=== PATIENT | female | born 1950 | race Asian ===

== ENCOUNTER 2016-06-18 05:46 | Day surgery (SDC) | payer OTHER ==
[~2016-06-18] VITALS: Ht 149.9 cm; Wt 44.1 kg
[~2016-06-18 05:46] MED LIST: ACETAMINOPHEN 325 MG TABLET PO PRN; AMLO-511 PO; ASPI81 PO; FentaNYL CITRATE-PF 100 MCG/2 ML VIAL IVP ONE; LISI-661 PO; METF500T4 PO; MIDAZOLAM HCL 2 MG/2 ML VIAL IVP ONE; SIMV-259 PO; TETRACAINE HCL 0.5% 2 ML OPHTHALMIC SOLUTION OS ONE
[2016-06-18] MEDS ORDERED: RINGERS SOLUTION,LACTATED 500 ML IV ONE ×2 (06:01→06:30)
[2016-06-18] MEDS ORDERED: DICLOFENAC SODIUM 0.1% 2.5 ML OPHTHALMIC SOLUTION ONE (06:02)
[2016-06-18] MEDS ORDERED: PHENYLEPHRINE HCL 2.5% 2 ML OPHTHALMIC SOLUTION ONE (06:02)
[2016-06-18] MEDS ORDERED: TETRACAINE HCL 0.5% 2 ML OPHTHALMIC SOLUTION ONE (06:02)
[2016-06-18] MEDS ORDERED: CYCLOPENTOLATE HCL 2% 2 ML OPHTHALMIC SOLUTION ONE (06:02)
[2016-06-18] MEDS ORDERED: GATIFLOXACIN 0.5% 2.5 ML OPHTHALMIC SOLUTION ONE (06:02)
[2016-06-18] MEDS: GATIFLOXACIN 0.5% 2.5 ML OPHTHALMIC SOLUTION OS SCH ×3 (06:40→07:05)
[2016-06-18] MEDS: PHENYLEPHRINE HCL 2.5% 2 ML OPHTHALMIC SOLUTION OS SCH ×3 (06:40→06:55)
[2016-06-18] MEDS: CYCLOPENTOLATE HCL 2% 2 ML OPHTHALMIC SOLUTION OS SCH ×3 (06:40→06:55)
[2016-06-18] MEDS: DICLOFENAC SODIUM 0.1% 2.5 ML OPHTHALMIC SOLUTION OS SCH ×3 (06:40→07:05)
[2016-06-18 06:52] LABS: GLUCOSE COMMENT 1 Doctor Notified; GLUCOSE,POINT OF CARE 130 MG/DL (70-110)
[2016-06-18] MEDS ORDERED: AcetaZOLAMIDE 250 MG TABLET PO ONE (07:30)
[2016-06-18] MEDS ORDERED: AcetaZOLAMIDE 250 MG TABLET ONE (08:24)
[2016-06-18] MEDS ORDERED: TETRACAINE HCL 0.5% 2 ML OPHTHALMIC SOLUTION OS ONE (18:02)
[2016-06-18] MEDS ORDERED: HYALURONATE SOD/CHONDROITIN SOD 0.5 ML VIAL IO ONE (18:02)
[2016-06-18] MEDS ORDERED: MOXIFLOXACIN HCL 0.5% 3 ML OPHTHALMIC SOLUTION OS ONE (18:02)
[2016-06-18] MEDS ORDERED: HYALURONATE SODIUM 12 MG/ML 0.8 ML SYRINGE IO ONE (18:02)
[2016-06-18] MEDS ORDERED: POVIDONE-IODINE 10% 15 ML SOLUTION UD TP ONE (18:02)
[2016-06-18] MEDS ORDERED: LIDOCAINE HCL/PF 1% 2 ML VIAL IM ONE (18:02)
[2016-06-18] MEDS ORDERED: EPINEPHrine 1:1,000 [1 MG/ML] AMP IM ONE (18:02)
[2016-06-18] MEDS ORDERED: BRIMONIDINE TARTRATE 0.15% 5 ML OPHTHALMIC SOLUTION OS ONE (18:02)
[2016-06-18] MEDS ORDERED: TETRACAINE HCL VISCOUS 0.5% 0.6 ML OPHTHALMIC SOLUTION OS ONE (18:02)
[2016-09-02] MEDS ORDERED: CALC-1062 PO (12:10)
== END 2016-06-18 09:00 | disposition home or self-care (01) ==
LOC: SURGERY 05:46
PROVIDERS: ATTEND Ophthalmology
DX: E11.36 Type 2 diabetes mellitus with diabetic cataract (principal); I10 Essential (primary) hypertension
CPT/HCPCS: 66984; 82962; 93005; C1780; J0171; J2250; J3010; J3490 ×2; J7120

== ENCOUNTER 2016-09-03 08:19 | Day surgery (SDC) | payer OTHER ==
[~2016-09-03] VITALS: Ht 152.4 cm; Wt 47.3 kg
[~2016-09-03 08:19] MED LIST changes: -ACETAMINOPHEN 325 MG TABLET PO PRN; +CALC-1062 PO; -FentaNYL CITRATE-PF 100 MCG/2 ML VIAL IVP ONE; -MIDAZOLAM HCL 2 MG/2 ML VIAL IVP ONE; -TETRACAINE HCL 0.5% 2 ML OPHTHALMIC SOLUTION OS ONE
[2016-09-03] MEDS ORDERED: TETRACAINE HCL/PF 0.5% 4 ML OPHTHALMIC SOLUTION OD ONE (08:30)
[2016-09-03] MEDS ORDERED: RINGERS SOLUTION,LACTATED 500 ML IV ONE ×2 (08:30→08:33)
[2016-09-03] MEDS ORDERED: ACETAMINOPHEN/CODEINE 300-30 MG TABLET PO PRN (08:30)
[2016-09-03] MEDS ORDERED: DICLOFENAC SODIUM 0.1% 2.5 ML OPHTHALMIC SOLUTION ONE (08:33)
[2016-09-03] MEDS ORDERED: CYCLOPENTOLATE HCL 2% 2 ML OPHTHALMIC SOLUTION ONE (08:33)
[2016-09-03] MEDS ORDERED: TETRACAINE HCL/PF 0.5% 4 ML OPHTHALMIC SOLUTION ONE (08:34)
[2016-09-03] MEDS ORDERED: PHENYLEPHRINE HCL 2.5% 2 ML OPHTHALMIC SOLUTION ONE (08:34)
[2016-09-03] MEDS ORDERED: MOXIFLOXACIN HCL 0.5% 3 ML OPHTHALMIC SOLUTION ONE (08:34)
[2016-09-03] MEDS: MOXIFLOXACIN HCL 0.5% 3 ML OPHTHALMIC SOLUTION OD SCH ×3 (09:09→09:29)
[2016-09-03] MEDS: PHENYLEPHRINE HCL 2.5% 2 ML OPHTHALMIC SOLUTION OD SCH ×3 (09:09→09:21)
[2016-09-03] MEDS: DICLOFENAC SODIUM 0.1% 2.5 ML OPHTHALMIC SOLUTION OD SCH ×3 (09:09→09:29)
[2016-09-03] MEDS: CYCLOPENTOLATE HCL 2% 2 ML OPHTHALMIC SOLUTION OD SCH ×3 (09:09→09:21)
[2016-09-03 09:42] LABS: GLUCOSE,POINT OF CARE 113 MG/DL (70-110)
[2016-09-03] MEDS ORDERED: AcetaZOLAMIDE 250 MG TABLET PO ONE (10:30)
[2016-09-03] MEDS ORDERED: AcetaZOLAMIDE 250 MG TABLET ONE (11:33)
[2016-09-03] MEDS ORDERED: HYALURONATE SOD/CHONDROITIN SOD 0.5 ML VIAL IO ONE (17:38)
[2016-09-03] MEDS ORDERED: HYALURONATE SODIUM 12 MG/ML 0.8 ML SYRINGE IO ONE (17:38)
[2016-09-03] MEDS ORDERED: POVIDONE-IODINE 10% 15 ML SOLUTION UD TP ONE (17:38)
[2016-09-03] MEDS ORDERED: BRIMONIDINE TARTRATE 0.15% 5 ML OPHTHALMIC SOLUTION OS ONE (17:38)
[2016-09-03] MEDS ORDERED: TETRACAINE HCL VISCOUS 0.5% 5 ML OPHTHALMIC SOLUTION OS ONE (17:38)
[2016-09-03] MEDS ORDERED: LIDOCAINE HCL/PF 1% 2 ML VIAL IM ONE (17:38)
== END 2016-09-03 12:15 | disposition home or self-care (01) ==
LOC: SURGERY 08:19
PROVIDERS: ATTEND Ophthalmology
DX: E11.36 Type 2 diabetes mellitus with diabetic cataract (principal); I10 Essential (primary) hypertension; Z98.42 Cataract extraction status, left eye; Z79.01 Long term (current) use of anticoagulants
CPT/HCPCS: 66984; 82962; 93005; C1780; J3490 ×2; J7120

== ENCOUNTER 2017-09-04 00:35 | Emergency (ER) | payer OTHER ==
[~2017-09-04] VITALS: Ht 152.4 cm; Wt 49.0 kg
[~2017-09-04 00:35] MED LIST changes: -METF500T4 PO; +METF500T6 PO
[2017-09-04 00:49] LABS: GLUCOSE,POINT OF CARE 181 MG/DL (70-110)
[2017-09-04 02:55] LABS: APPEARANCE,URINE CLEAR (CLEAR); BILIRUBIN,URINE NEGATIVE (NEGATIVE); GLUCOSE, URINE (UA) NEGATIVE (NEGATIVE); KETONES,URINE NEGATIVE (NEGATIVE); LEUKOCYTE ESTERASE ,URINE NEGATIVE (NEGATIVE); NITRATE,URINE NEGATIVE (NEGATIVE); OCCULT BLOOD,URINE TRACE (NEGATIVE); PH,URINE 5.5 (5.0-8.0); PROTEIN,URINE NEGATIVE (NEGATIVE); UROBILINOGEN,URINE 0.2 mg/dL (<=1.0)
[2017-09-04 03:20] LABS: BACTERIA,URINE None Seen /HPF (None Seen); RBC,URINE 0-2 /HPF (0-2); WBC,URINE None Seen /HPF (0-5)
[2017-09-04] MEDS ORDERED: METHOCARBAMOL 500 MG TABLET PO ONE (03:30)
[2017-09-04] MEDS ORDERED: HYDROCODONE/ACETAMINOPHEN 5-325 MG TABLET PO ONE (03:30)
[2017-09-04 04:22] LABS: BASOPHILS % (AUTO) 0.3 % (0.0-2.0); EOSINOPHILS % (AUTO) 0.6 % (1.0-6.0); HEMATOCRIT 35.1 % (36-46); HEMOGLOBIN 11.8 g/dL (12.0-16.0); LYMPHOCYTES # (AUTO) 1.8 K/uL (1.0-4.8); LYMPHOCYTES % (AUTO) 19.3 % (22.0-44.0); MEAN CORPUSCULAR HEMOGLOBIN 29.6 pg (26.0-34.0); MEAN CORPUSCULAR HGB CONC 33.7 G/dL (31.0-37.0); MEAN CORPUSCULAR VOLUME 88 fL (80-100); MONOCYTES # (AUTO) 0.5 K/uL (0.1-1.0); MONOCYTES % (AUTO) 5.5 % (2.0-9.0); NEUTROPHILS % (AUTO) 74.3 % (40.0-70.0); PLATELET COUNT (AUTO) 336 K/uL (150-450); RED CELL DISTRIBUTION WIDTH 13.3 % (11.5-14.5)
[2017-09-04 04:24] LABS: ANION GAP 7 mmol/L (8-16); CALCIUM, TOTAL 9.3 mg/dL (8.8-10.5); CARBON DIOXIDE 29 mmol/L (22-29); CHLORIDE 103 mmol/L (98-107); CREATININE 0.72 mg/dL (0.60-1.30); GLOMERULAR FILTR. RATE CALC > 60 mL/min (>60); GLUCOSE,RANDOM 131 mg/dL (70-110); POTASSIUM 3.9 mmol/L (3.5-5.1); SODIUM SERUM 139 mmol/L (136-145); UREA NITROGEN, BLOOD 7 mg/dL (7-18)
[2017-09-04 04:30] LABS: ALANINE AMINOTRANSFERASE 23 U/L (12-78); ALBUMIN 4.3 g/dL (3.4-5.0); ALKALINE PHOSPHATASE 69 U/L (46-116); ASPARTATE AMINOTRANSFERASE 20 U/L (15-37); BILIRUBIN,TOTAL 0.6 mg/dL (0.1-1.0); LIPASE 135 U/L (73-393); TOTAL PROTEIN, SERUM 8.8 g/dL (6.4-8.2)
[2017-09-04 04:50] VITALS: BP 139/76
== END 2017-09-04 04:53 | disposition home or self-care (01) ==
LOC: EMS 00:36
DX: M54.5 Low back pain (principal); R10.13 Epigastric pain; E11.9 Type 2 diabetes mellitus without complications; E78.00 Pure hypercholesterolemia, unspecified; I10 Essential (primary) hypertension
CPT/HCPCS: 99284

== ENCOUNTER 2019-10-04 14:03 | Emergency (ER) | payer OTHER ==
[~2019-10-04] VITALS: Ht 152.4 cm; Wt 45.5 kg
[~2019-10-04 14:03] MED LIST changes: +AMLO-257 PO; -AMLO-511 PO; +ASPI-728 PO; -ASPI81 PO; +METF-960 PO; -METF500T6 PO
[2019-10-04] MEDS ORDERED: LIDOCAINE 1% 10 ML VIAL INJ ONE (15:00)
[2019-10-04] MEDS ORDERED: SODIUM CHLORIDE 0.9% 250 ML IRRIG SOLUTION BOTTLE IRRIG ONE (15:00)
[2019-10-04] MEDS ORDERED: PERTUSS(ACELL),DIPH,TET VAC/PF 0.5 ML VIAL IM ONE (15:00)
[2019-10-04] MEDS ORDERED: ACETAMINOPHEN 325 MG TABLET PO ONE (15:15)
[2019-10-04] MEDS ORDERED: POVIDONE-IODINE 10% 120 ML SOLUTION TP ONE (15:30)
[2019-10-04 15:45] VITALS: BP 141/86
== END 2019-10-04 16:00 | disposition home or self-care (01) ==
LOC: EMS 14:07
DX: S61.412A Laceration without foreign body of left hand, initial encounter (principal); E11.9 Type 2 diabetes mellitus without complications; E78.00 Pure hypercholesterolemia, unspecified; I10 Essential (primary) hypertension; Z79.84 Long term (current) use of oral hypoglycemic drugs; Z79.899 Other long term (current) drug therapy; Z79.82 Long term (current) use of aspirin; W45.8XXA Other foreign body or object entering through skin, initial encounter; Y93.89 Activity, other specified; Y92.89 Other specified places as the place of occurrence of the external cause; Y99.8 Other external cause status
CPT/HCPCS: 12001; 90471; 90715; 99283; J3490

== ENCOUNTER 2019-10-13 10:48 | Emergency (ER) | payer OTHER ==
[~2019-10-13] VITALS: Ht 152.4 cm; Wt 54.5 kg
[2019-10-13 11:35] VITALS: BP 138/70
== END 2019-10-13 11:50 | disposition home or self-care (01) ==
LOC: EMS 10:50
DX: S61.412D Laceration without foreign body of left hand, subsequent encounter (principal); I10 Essential (primary) hypertension; E11.9 Type 2 diabetes mellitus without complications; E78.00 Pure hypercholesterolemia, unspecified; Z48.02 Encounter for removal of sutures; Z79.82 Long term (current) use of aspirin; Z79.84 Long term (current) use of oral hypoglycemic drugs; Z79.899 Other long term (current) drug therapy; W45.8XXD Other foreign body or object entering through skin, subsequent encounter
CPT/HCPCS: Z7502